=== PATIENT | female | born 1930 | race Caucasian/White ===

== ENCOUNTER 2020-09-24 08:55 | Observation (INO) ==
[2020-09-24 09:24] LABS: Basophils % 0.6 % (0.0-0.8); Eosinophils # 0.1 10*3/uL (0.0-0.87); Eosinophils % 1.2 % (0.00-10.9); Hematocrit 41.9 VOL% (35.7-47.0); Hemoglobin 13.1 GM/DL (12.0-16.0); Immature Granulocytes % 0.4 %; Immature Granulocytes Absolute 0.02 #; Lymphocytes # 1.3 10*3/uL (1.4-4.0); Lymphocytes % 25.3 % (21.3-54.2); Mean Corpuscular HGB Conc 31.3 GM/DL (32-36); Mean Corpuscular Volume 92.3 FL (87-102); Mean Platelet Volume 10.6 FL (9.6-12.0); Monocytes % 9.2 % (1.7-12.7); Neutrophils % 63.3 % (38.7-73.9); Platelet Count 161 T/CUMM (130-400); Red Blood Count 4.54 MC/CUMM (3.8-5.5); Red Cell Distribution Width 13.1 % (9.3-17.3); White Blood Count 5.1 T/CUMM (4-12)
[2020-09-24 09:55] LABS: Albumin 3.7 G/DL (3.4-5.0); Bilirubin,Total 0.5 MG/DL (0.2-1.0); Calcium 9.1 MG/DL (8.5-10.1); Potassium 4.5 MMOL/L (3.5-5.1); Total Protein 6.5 G/DL (6.4-8.2)
[2020-09-24] MEDS ORDERED: ONDANSETRON 4 MG/2 ML VIAL IV PRN (10:57)
[2020-09-24] MEDS ORDERED: CALCIUM CARBONATE CHEW 500 MG TABLET PO PRN (10:57)
[2020-09-24] MEDS ORDERED: DEXTROSE 50% 25 GM/50 ML VIAL IV PRN (10:57)
[2020-09-24] MEDS ORDERED: GLUCAGON 1 MG VIAL IM PRN (10:57)
[2020-09-24] MEDS ORDERED: ACETAMINOPHEN 325 MG TABLET PO PRN (10:57)
[2020-09-24] MEDS ORDERED: DOCUSATE SODIUM 100 MG CAPSULE PO PRN (10:57)
[2020-09-24] MEDS ORDERED: SIMETHICONE CHEW 125 MG TABLET PO PRN (10:57)
[2020-09-24] MEDS: SODIUM CHLORIDE 0.9% 1,000 ML IV SCH ×2 (12:45→18:31)
[2020-09-24] MEDS: ENOXAPARIN 40 MG/0.4 ML SYRINGE SUBCUT SCH (12:46)
[2020-09-25 06:39] LABS: Basophils % 0.7 % (0.0-0.8); Eosinophils # 0.1 10*3/uL (0.0-0.87); Eosinophils % 1.7 % (0.00-10.9); Hematocrit 31.8 VOL% (35.7-47.0); Immature Granulocytes % 0.5 %; Immature Granulocytes Absolute 0.02 #; Lymphocytes # 1.1 10*3/uL (1.4-4.0); Lymphocytes % 27.2 % (21.3-54.2); Mean Corpuscular HGB Conc 30.8 GM/DL (32-36); Mean Corpuscular Volume 94.6 FL (87-102); Mean Platelet Volume 10.9 FL (9.6-12.0); Monocytes % 10.7 % (1.7-12.7); Neutrophils % 59.2 % (38.7-73.9); Red Cell Distribution Width 12.9 % (9.3-17.3)
[2020-09-25 07:00] LABS: Hemoglobin 9.8 GM/DL (12.0-16.0); Platelet Count 118 T/CUMM (130-400); Red Blood Count 3.36 MC/CUMM (3.8-5.5)
[2020-09-25 07:01] LABS: Alanine Aminotransferase < 9 U/L (13-56); Albumin 1.9 G/DL (3.4-5.0); Alkaline Phosphatase 34 U/L (45-117); Aspartate Amino Transferase 6 U/L (0-37); Blood Urea Nitrogen 10 MG/DL (7-18); Calcium 6.3 MG/DL (8.5-10.1); Carbon Dioxide 22 MMOL/L (21-32); Estimated Glom Filtration Rate 108 ML/MIN; Glucose 76 MG/DL (74-106); HDL Cholesterol 35 MG/DL (40-60); Osmolality,Calculated 296.9 MOS/KG (273-304); Potassium 2.9 MMOL/L (3.5-5.1); Risk Ratio 2.97; Sodium 151 MMOL/L (136-145); Total Protein 3.9 G/DL (6.4-8.2); Triglycerides 77 MG/DL (2-150); VLDL CHOLESTEROL 15.4 MG/DL
[2020-09-25 07:18] LABS: Platelet Estimate Adequate
[2020-09-25 07:19] LABS: Anisocytosis Slight; Burr Cells Few; Macrocytosis 1+
[2020-09-25] MEDS ORDERED: POTASSIUM CHLORIDE 20 MEQ TABLET PO PRN (07:27)
[2020-09-25] MEDS ORDERED: POTASSIUM CHLORIDE INJ 40 MEQ in SODIUM CHLORIDE 0.45% 1,000 ML IV SCH (08:30)
[2020-09-25] MEDS: SODIUM CHLORIDE 0.9% 1,000 ML IV SCH (08:40)
[2020-09-25 08:59] LABS: Calcium 8.7 MG/DL (8.5-10.1); Potassium 3.9 MMOL/L (3.5-5.1)
[2020-09-25] MEDS ORDERED: LOSARTAN 25 MG TABLET PO SCH (09:00)
[2020-09-25] MEDS ORDERED: CHOLECALCIFEROL 5,000 UNIT TABLET PO SCH (09:00)
[2020-09-25] MEDS ORDERED: ASPIRIN EC 81 MG TABLET PO SCH (09:00)
[2020-09-25] MEDS ORDERED: PANTOPRAZOLE 40 MG TABLET PO SCH (09:00)
[2020-09-25] MEDS ORDERED: CETIRIZINE 10 MG TABLET PO SCH (09:00)
[2020-09-25 09:03] LABS: Ferritin 72.9 ng/ml (8-252)
[2020-09-25 09:06] LABS: Folate 13.35 NG/ML (5.38-24.0)
[2020-09-25] MEDS: ENOXAPARIN 40 MG/0.4 ML SYRINGE SUBCUT SCH (12:32)
[2020-09-25] MEDS ORDERED: DIAZEPAM 5 MG TABLET PO ONE (12:32)
[2020-09-25] MEDS ORDERED: TISSUE ADHESIVE 1 EACH APPLICATOR TOP ONE ×2 (13:06→13:23)
[2020-09-25] MEDS ORDERED: LIDOCAINE 1%/EPI INJ 20 ML VIAL ONE (13:06)
[2020-09-25] MEDS ORDERED: LIDOCAINE 1%/EPI INJ 20 ML VIAL INFILTRAT ONE (13:22)
[2020-09-25 14:05] VITALS: BP 145/65
[2020-09-25] MEDS ORDERED: ROSUVASTATIN 20 MG TABLET PO SCH (21:00)
[2020-09-25] MEDS ORDERED: MONTELUKAST 10 MG TABLET PO SCH (21:00)
== END 2020-09-25 15:35 | disposition home or self-care (01) ==
LOC: N.EDINP 08:55 → N.ED 08:55 → N.EDINP 15:00 → N.TELES 15:10
PROVIDERS: ADMIT Internal Medicine; ATTEND Internal Medicine

== ENCOUNTER 2020-11-15 15:50 | Inpatient (IN) ==
[2020-11-15 17:06] LABS: Basophils % 0.5 % (0.0-0.8); Eosinophils % 0.5 % (0.00-10.9); Hemoglobin 12.2 GM/DL (12.0-16.0); Immature Granulocytes % 0.3 %; Immature Granulocytes Absolute 0.02 #; Lymphocytes # 1.3 10*3/uL (1.4-4.0); Mean Corpuscular HGB Conc 31.3 GM/DL (32-36); Mean Corpuscular Volume 93.3 FL (87-102); Mean Platelet Volume 11.2 FL (9.6-12.0); Monocytes % 9.9 % (1.7-12.7); Neutrophils % 67.8 % (38.7-73.9); Platelet Count 172 T/CUMM (130-400); Red Blood Count 4.18 MC/CUMM (3.8-5.5); Red Cell Distribution Width 12.8 % (9.3-17.3); White Blood Count 6.2 T/CUMM (4-12)
[2020-11-15 17:12] LABS: PT Patient Result 11.2 SECS (10.5-12.0)
[2020-11-15 17:17] LABS: Alanine Aminotransferase 14 U/L (13-56); Albumin 3.7 G/DL (3.4-5.0); Alkaline Phosphatase 53 U/L (45-117); Aspartate Amino Transferase 13 U/L (0-37); Bilirubin,Total < 0.39 MG/DL (0.20-1.00); Blood Urea Nitrogen 22 MG/DL (7-18); Calcium 9.1 MG/DL (8.5-10.1); Carbon Dioxide 29 MMOL/L (21-32); Glucose 111 MG/DL (74-106); Osmolality,Calculated 284.3 MOS/KG (273-304); Potassium 4.2 MMOL/L (3.5-5.1); Sodium 141 MMOL/L (136-145); Total Protein 6.2 G/DL (6.4-8.2)
[2020-11-15 17:18] LABS: Estimated Glom Filtration Rate 0 ML/MIN
[2020-11-15] MEDS ORDERED: HEPARIN/NACL 0.9% 2 UNITS/ML 1,000 UNIT/500 ML BAG IV ONE (17:36)
[2020-11-15 18:00] VITALS: BP 130/55
[2020-11-15] MEDS ORDERED: LIDOCAINE 1% 20 ML VIAL ONE (18:27)
[2020-11-15] MEDS: LACTATED RINGERS 1,000 ML IV SCH (19:00)
[2020-11-15] MEDS ORDERED: ALBUTEROL/IPRATROPIUM 3 ML NEB RESP TX PRN (19:23)
[2020-11-15] MEDS: ASCORBIC ACID 500 MG TABLET PO SCH (21:40)
[2020-11-15] MEDS: MONTELUKAST 10 MG TABLET PO SCH (21:40)
[2020-11-15] MEDS: ROSUVASTATIN 20 MG TABLET PO SCH (21:40)
[2020-11-15] MEDS ORDERED: ATROPINE 1 MG/10 ML SYRINGE IV PRN (22:46)
[2020-11-15] MEDS ORDERED: DOPamine 800 MG/250 ML PREMIX IV PRN (22:56)
[2020-11-16 04:57] LABS: Basophils % 0.7 % (0.0-0.8); Eosinophils # 0.1 10*3/uL (0.0-0.87); Eosinophils % 1.4 % (0.00-10.9); Hematocrit 36.9 VOL% (35.7-47.0); Hemoglobin 11.4 GM/DL (12.0-16.0); Immature Granulocytes % 0.2 %; Immature Granulocytes Absolute 0.01 #; Lymphocytes # 1.5 10*3/uL (1.4-4.0); Lymphocytes % 25.4 % (21.3-54.2); Mean Corpuscular HGB Conc 30.9 GM/DL (32-36); Mean Corpuscular Volume 94.1 FL (87-102); Mean Platelet Volume 10.9 FL (9.6-12.0); Monocytes % 10.3 % (1.7-12.7); Platelet Count 142 T/CUMM (130-400); Red Blood Count 3.92 MC/CUMM (3.8-5.5); White Blood Count 5.9 T/CUMM (4-12)
[2020-11-16 05:23] LABS: Albumin 2.9 G/DL (3.4-5.0); Bilirubin,Total 0.4 MG/DL (0.20-1.00); Calcium 8.3 MG/DL (8.5-10.1); Osmolality,Calculated 286.8 MOS/KG (273-304); Potassium 3.8 MMOL/L (3.5-5.1); Total Protein 5.4 G/DL (6.4-8.2)
[2020-11-16] MEDS: LACTATED RINGERS 1,000 ML IV SCH ×2 (07:43→21:15)
[2020-11-16] MEDS: ASPIRIN EC 81 MG TABLET PO SCH (09:44)
[2020-11-16] MEDS: CYANOCOBALAMIN 500 MCG TABLET PO SCH (09:44)
[2020-11-16] MEDS: SPIRONOLACTONE 25 MG TABLET PO SCH (09:44)
[2020-11-16] MEDS: CETIRIZINE 10 MG TABLET PO SCH (09:44)
[2020-11-16] MEDS: LOSARTAN 25 MG TABLET PO SCH (09:44)
[2020-11-16] MEDS: CHOLECALCIFEROL 5,000 UNIT TABLET PO SCH (09:44)
[2020-11-16] MEDS: ACETAMINOPHEN 325 MG TABLET PO PRN (16:40)
[2020-11-16] MEDS: ASCORBIC ACID 500 MG TABLET PO SCH (21:15)
[2020-11-16] MEDS: MONTELUKAST 10 MG TABLET PO SCH (21:15)
[2020-11-16] MEDS: ROSUVASTATIN 20 MG TABLET PO SCH (21:15)
[2020-11-17] MEDS: ACETAMINOPHEN 325 MG TABLET PO PRN ×2 (03:58→21:12)
[2020-11-17 05:25] LABS: Basophils % 0.6 % (0.0-0.8); Eosinophils # 0.1 10*3/uL (0.0-0.87); Eosinophils % 1.5 % (0.00-10.9); Hemoglobin 12.9 GM/DL (12.0-16.0); Immature Granulocytes % 0.4 %; Immature Granulocytes Absolute 0.03 #; Lymphocytes # 1.3 10*3/uL (1.4-4.0); Lymphocytes % 18.9 % (21.3-54.2); Mean Corpuscular HGB Conc 31.5 GM/DL (32-36); Mean Corpuscular Volume 93.6 FL (87-102); Mean Platelet Volume 10.9 FL (9.6-12.0); Monocytes % 9.1 % (1.7-12.7); Neutrophils % 69.5 % (38.7-73.9); Platelet Count 146 T/CUMM (130-400); Red Blood Count 4.38 MC/CUMM (3.8-5.5); Red Cell Distribution Width 12.7 % (9.3-17.3); White Blood Count 6.7 T/CUMM (4-12)
[2020-11-17 05:32] LABS: PT Patient Result 11.6 SECS (10.5-12.0)
[2020-11-17 05:44] LABS: Alanine Aminotransferase < 9 U/L (13-56); Albumin 2.8 G/DL (3.4-5.0); Alkaline Phosphatase 51 U/L (45-117); Aspartate Amino Transferase 12 U/L (0-37); Blood Urea Nitrogen 11 MG/DL (7-18); Calcium 8.5 MG/DL (8.5-10.1); Carbon Dioxide 27 MMOL/L (21-32); Estimated Glom Filtration Rate 85 ML/MIN; Glucose 117 MG/DL (74-106); Potassium 3.8 MMOL/L (3.5-5.1); Sodium 143 MMOL/L (136-145); Total Protein 5.6 G/DL (6.4-8.2)
[2020-11-17 05:45] LABS: Platelet Estimate Adequate
[2020-11-17] MEDS: DEXTROSE 5% NACL 0.45% 1,000 ML IV SCH ×2 (06:11→12:34)
[2020-11-17] MEDS ORDERED: POTASSIUM CHLORIDE RIDER 10 MEQ/100 ML PREMIX IV PRN (07:35)
[2020-11-17] MEDS ORDERED: DIAZEPAM 5 MG TABLET PO ONE (09:30)
[2020-11-17] MEDS ORDERED: diphenhydrAMINE CAP 25 MG CAPSULE PO ONE (09:30)
[2020-11-17] MEDS ORDERED: ceFAZolin 1,000 MG VIAL IRRIG ONE (09:30)
[2020-11-17] MEDS ORDERED: LIDOCAINE 1%/EPI INJ 20 ML VIAL ONE (09:57)
[2020-11-17] MEDS ORDERED: ceFAZolin 1,000 MG VIAL ONE (09:57)
[2020-11-17] MEDS ORDERED: HYDROmorphone 2 MG/1 ML VIAL ONE (10:11)
[2020-11-17] MEDS ORDERED: MIDAZOLAM 2 MG/2 ML VIAL ONE (10:11)
[2020-11-17] MEDS ORDERED: TISSUE ADHESIVE 1 EACH APPLICATOR TOP ONE (11:00)
[2020-11-17] MEDS ORDERED: POTASSIUM CHLORIDE 20 MEQ/15 ML UDCUP PER TUBE PRN (11:27)
[2020-11-17 12:26] LABS: Bilirubin,Urine Negative (Negative); Blood, Urine Negative (Negative); Glucose,Urine (UA) Negative (Negative); Ketones,Urine Negative (Negative); Mucus,Urine Occasional /LPF (Occasional); Nitrite,Urine Positive (Negative); Protein,Urine Negative; RBC,Urine 4 /HPF (0-4); Urine Appearance CLEAR (Clear); Urine Color Yellow (Yellow); Urine Urobilinogen < 2.0 EU/DL (0.2-1.0)
[2020-11-17] MEDS: LACTATED RINGERS 1,000 ML IV SCH (12:30)
[2020-11-17] MEDS: CYANOCOBALAMIN 500 MCG TABLET PO SCH (14:00)
[2020-11-17] MEDS: CHOLECALCIFEROL 5,000 UNIT TABLET PO SCH (14:00)
[2020-11-17] MEDS: CETIRIZINE 10 MG TABLET PO SCH (14:00)
[2020-11-17] MEDS: LOSARTAN 25 MG TABLET PO SCH (14:00)
[2020-11-17] MEDS: SPIRONOLACTONE 25 MG TABLET PO SCH (14:00)
[2020-11-17] MEDS: ASPIRIN EC 81 MG TABLET PO SCH (14:00)
[2020-11-17] MEDS: MONTELUKAST 10 MG TABLET PO SCH (21:11)
[2020-11-17] MEDS: ASCORBIC ACID 500 MG TABLET PO SCH (21:11)
[2020-11-17] MEDS: ROSUVASTATIN 20 MG TABLET PO SCH (21:12)
[2020-11-18] MEDS: ACETAMINOPHEN 325 MG TABLET PO PRN (03:58)
[2020-11-18 04:37] LABS: Basophils % 0.5 % (0.0-0.8); Eosinophils # 0.1 10*3/uL (0.0-0.87); Eosinophils % 1.8 % (0.00-10.9); Hematocrit 40.5 VOL% (35.7-47.0); Hemoglobin 13.1 GM/DL (12.0-16.0); Immature Granulocytes % 0.5 %; Immature Granulocytes Absolute 0.03 #; Lymphocytes # 1.1 10*3/uL (1.4-4.0); Mean Corpuscular HGB Conc 32.3 GM/DL (32-36); Mean Corpuscular Volume 93.3 FL (87-102); Mean Platelet Volume 10.9 FL (9.6-12.0); Monocytes % 10.5 % (1.7-12.7); Neutrophils % 67.7 % (38.7-73.9); Platelet Count 108 T/CUMM (130-400); Red Blood Count 4.34 MC/CUMM (3.8-5.5); Red Cell Distribution Width 12.9 % (9.3-17.3)
[2020-11-18 04:59] LABS: Calcium 8.1 MG/DL (8.5-10.1); Osmolality,Calculated 277.4 MOS/KG (273-304)
[2020-11-18 04:59] LABS: Hypochromasia Slight; Microcytosis Slight
[2020-11-18] MEDS: SPIRONOLACTONE 25 MG TABLET PO SCH (09:20)
[2020-11-18] MEDS: CYANOCOBALAMIN 500 MCG TABLET PO SCH (09:20)
[2020-11-18] MEDS: CHOLECALCIFEROL 5,000 UNIT TABLET PO SCH (09:20)
[2020-11-18] MEDS: LOSARTAN 25 MG TABLET PO SCH (09:21)
[2020-11-18] MEDS: ASPIRIN EC 81 MG TABLET PO SCH (09:21)
[2020-11-18] MEDS: CETIRIZINE 10 MG TABLET PO SCH (09:21)
== END 2020-11-18 11:10 | disposition home or self-care (01) | DRG 243 ==
LOC: N.ED 15:50 → N.EDINP 15:50 → OBSVTOIN 17:37 → N.TELES 17:52 → N.ICU 18:05
PROVIDERS: ADMIT Internal Medicine Cardiovascular Disease; ATTEND Internal Medicine Cardiovascular Disease